=== PATIENT | female | born 1985 | race Two or more races ===

== ENCOUNTER 2024-04-25 12:26 | Emergency (ER) | payer BC, SELFPAY ==
[2024-04-25 12:26] VITALS: BP 108/78; PULSE 117; RESP 22; TEMP 36.7; O2SAT 97; BMI 36.8
--- NOTE | 2024-04-25 12:46 | XR_ITS ---
Examination: PA lateral chest 2 views TECHNIQUE: Upright PA lateral chest 2 views Exam date and time: April 25, 2024 1300 hours Comparison October 03, 2014 INDICATIONS: Coughing this week. FINDINGS: Normal heart size Lungs are clear. The osseous structures are intact IMPRESSION: No active disease
--- NOTE | 2024-04-25 12:46 | XR_ITS ---
Examination: CT brain head without contrast. 2-D sagittal coronal reconstructions Date and time of exam:November 24, 2023 1323 hours Comparison October 20, 2022 INDICATIONS: Generalized head pain today CTDI: vol (mGy):49.8 DLP: (mGycm):1024 Technique: Multiple CT axial sections of the brain have been obtained, 5 mm slice thickness. Contrast has not been administered. 2-D sagittal, coronal reconstructions have been obtained Low dose protocols were performed. One or more of the following dose reduction techniques were used; automated exposure control, adjustment of the mA and/or KV according to patient size, use of iterative reconstruction technique. Findings: No significant ventricular enlargement. Intra-axial or extra-axial hemorrhage density is not seen. No mass effect or midline shift Basal cisterns are not remarkable. Fourth ventricle is midline. Cranial vault intact. Prominent chronic ethmoid sinusitis Impression: Negative for acute hemorrhage, mass effect or midline shift Advise clinical correlation follow-up accordingly
[2024-04-25] MEDS: ACETAMINOPHEN 500 MG TABLET 1000 MG PO (12:54)
[2024-04-25] MEDS: DEXAMETHASONE SOD PHOS INJ 10 MG/ML VIAL PO (12:55)
[2024-04-25] MEDS: ALBUTEROL/IPRATROPIUM (Duoneb) RT SOL 3 ML NEBU INH (13:14)
[2024-04-25 13:17] VITALS: PULSE 111; RESP 22; O2SAT 98
--- NOTE | 2024-04-25 13:40 | PD.ASTHM ---
ED Asthma RME/HPI General Chief Complaint: Asthma Stated Complaint: ASTHMA FLARE UP Time Seen by Provider: 04/25/24 12:35 Arrival date/time: 04/25/24 12:26 39-year-old female with medical history significant for asthma presents to the emergency department today complaints of cough, congestion and asthma flareup there are no other associated symptoms or aggravating factors no other modifying factors, patient denies taking medication before coming to ER today Limitations: no limitations Related Data Home Medications ?Medication ?Instructions ?Recorded ?Confirmed albuterol sulfate 90 mcg/actuation 2 puff inhalation Q6H PRN 04/01/20 04/01/20 aerosol inhaler Shortness Of Breath Previous Rx's ?Medication ?Instructions ?Recorded docusate sodium 100 mg capsule 100 mg PO BID 30 days 04/04/20 (Colace) #60 caps ibuprofen 600 mg tablet (IBU) 600 mg PO Q6H PRN fever or pain 30 04/04/20 days #60 tabs dicyclomine 20 mg tablet 20 mg PO QID PRN abdominal pain 10/20/22 #14 tabs ondansetron 4 mg disintegrating 4 mg PO TID PRN nausea and 10/20/22 tablet vomiting #14 tabs ibuprofen 600 mg tablet 600 mg PO Q6H PRN pain #30 tabs 05/24/23 prednisone 10 mg tablet 30 mg (3 x 10 mg) PO BID 3 days 04/25/24 #18 tabs Allergies Allergy/AdvReac Type Severity Reaction Status Date / Time phenylephrine Allergy Severe REACTS Verified 05/24/23 19:28 WITH ASTHMA brompheniramine Allergy Mild REACTS Verified 05/24/23 19:28 WITH ASTHMA phenylpropanolamine Allergy Mild Difficulty Verified 05/24/23 19:28 [From Dimetapp Breathing (brompheniramine-PPA)] Review of Systems Review of Systems Systems Reviewed: All systems reviewed, normal except as documented Constitutional Constitutional: Reports system reviewed and no additional complaints, except as documented, Reports body ache(s), Reports fever(s) and Reports headache(s) Eyes Eyes: Reports system reviewed and no additional complaints, except as documented and Denies blurry vision ENT Ears, Nose, Mouth, and Throat: Reports system reviewed and no additional complaints, except as documented, Reports headache(s), Reports nasal congestion and Reports nasal discharge Cardiovascular Cardiovascular: Reports system reviewed and no additional complaints, except as documented, Denies chest pain and Denies dyspnea Respiratory Respiratory: Reports system reviewed and no additional complaints, except as documented, Reports chest congestion, Reports cough and Denies dyspnea Gastrointestinal Gastrointestinal: Reports system reviewed and no additional complaints, except as documented and Denies abdominal pain Integumentary/Breasts Skin/Breast: Reports system reviewed and no additional complaints, except as documented and Denies rash Neurologic Neurologic: Reports system reviewed and no additional complaints, except as documented, Reports as per HPI and Reports headache(s) Past Medical History Past Medical History NEUROLOGIC: Negative Neurological Disorders or Seizures CARDIAC: Negative Cardiac Disorders or Congestive Heart Failure RESPIRATORY: Positive Asthma; Negative Chronic Obstructive Pulmonary Disease (COPD) or Sleep Apnea GASTROINTESTINAL: Positive Gastrointestinal Disorders and Gall Bladder Disease GENITOURINARY: Negative Genitourinary Disorders or Renal Disease REPRODUCTIVE: Positive Previous Pregnancies MUSCULOSKELETAL: Negative Musculoskeletal Disorders ENDOCRINE: Negative Endocrine Disorders, Diabetes Mellitus Type 1 or Diabetes Mellitus Type 2 HEMATOLOGIC: Positive Blood Disorders and Clotting Problems; Negative Anemia or Sickle Cell Disease OTHER HISTORY: Positive Hospitalization; Negative Falls, Blood Transfusions, Anesthesia Reactions, Chemotherapy, MRSA or Cancer Family History FAMILY HISTORY: Negative Family Respiratory Disorders, Family Cardiac Disorders or Family Gastrointestinal Problems Surgical History SURGICAL: Positive Abdominal Surgery, Hysterectomy and Tubal Ligation; Negative Joint Replacement Social History SMOKING STATUS: Never smoker SUBSTANCE USE: does not use ED Exam General Limitations: Present no limitations General appearance: Present alert and in no apparent distress Head Head exam: Present atraumatic, normocephalic and normal inspection Eye Eye exam: Present normal appearance, PERRL and EOMI; Absent conjunctival injection ENT ENT exam: Present normal exam, normal oropharynx and mucous membranes moist Neck Neck exam: Present normal inspection, full ROM and trachea midline Chest Chest inspection: Present normal inspection and symmetric chest wall rise Respiratory Respiratory exam: Present normal lung sounds bilaterally; Absent respiratory distress Cardiovascular Cardiovascular exam: Present regular rate, normal rhythm and normal heart sounds Abdominal Exam Abdominal exam: Present soft and normal bowel sounds; Absent distention, tenderness, guarding, rebound or rigidity Extremities Exam Extremities exam: Present normal inspection and full ROM Back Exam Back exam: Present normal inspection and full ROM Neurological Exam Neurological exam: Present alert, oriented X3, CN II-XII intact, normal gait and reflexes normal; Absent motor sensory deficit Psychiatric Psychiatric exam: Present normal affect and normal mood Skin Skin exam: Present warm, dry, intact and normal color; Absent rash Course Quality Measures none Orders Category Date Time Status Bedside Influenza A&B Antigen Test NOW Care 04/25/24 12:[address] head/brain wo con Stat Exams 04/25/24 12:46 Completed XR chest 2V Stat Exams 04/25/24 12:46 Completed Acetaminophen Tab [Tylenol ES Tab] Med 04/25/24 12:46 Discontinued 1,000 mg PO X1 ONE Albuterol/Ipratr Rt Karen [Duoneb Rt Karen] Med 04/25/24 12:46 Discontinued 3 ml INH X1 ONE Dexamethasone Inj [Decadron Inj] Med 04/25/24 12:46 Discontinued 10 mg PO X1 ONE Vital Signs Vital signs: Vital Signs Temperature 98.1 F 04/25/24 12:26 Pulse Rate 117 H 04/25/24 12:26 Respiratory Rate 22 H 04/25/24 12:26 Blood Pressure 108/78 04/25/24 12:26 Pulse Oximetry (%) 97 04/25/24 12:26 Oxygen Delivery Method Room Air 04/25/24 12:26 O2 saturation 97% room air within normal limits Asthma MDM Narrative MDM Narrative:: 39-year-old female with medical history significant for asthma presents to the emergency department today complaints of cough, congestion and asthma flareup patient reports headache and head burning there are no other associated symptoms or aggravating factors no other modifying factors, patient denies taking medication before coming to ER today On exam patient well-appearing patient does not appear ill or toxic patient does not appear in acute distress On exam patient is wheezing Patient checked for flu and COVID chest x-ray obtained Patient given breathing treatment and steroids Patient discharged home in no distress to follow-up with primary care doctor in the next 24 to 48 hours and for any worsening symptoms to return to the ER immediately Patient data External records reviewed:: [facility] previous records Clinical information provided by:: patient Social determinants that could affect healthcare access:: none Patient has the following chronic illnesses:: None How is presenting disease/condition affected by chronic disease/condition?: no chronic disease Evaluation data The following diagnostics were reviewed and interpreted by me:: lab results and radiology exam(s) Lab and/or radiology exams considered but not ordered:: Labs and radiology obtained Interpretation Summary: Reviewed by me Medications / Prescriptions Medications or Prescriptions considered but not ordered:: Given Medication administrations:: Medication Administration History Discontinued Medications Acetaminophen (Acetaminophen 500 Mg Tablet) 1,000 mg PO X1 ONE Stop: 12/11/24 12:47 Last Admin: 04/25/24 12:54 Dose: 1,000 mg Documented By: BRYSON Albuterol/Ipratropium (Albuterol/Ipratropium (Duoneb) Rt Karen 3 Ml Nebu) 3 ml INH X1 ONE Stop: 04/25/24 12:47 Last Admin: 04/25/24 13:14 Dose: 3 ml Documented By: NOE Dexamethasone Sodium Phosphate (Dexamethasone Sod Phos Inj 10 Mg/Ml Vial) 10 mg PO X1 ONE Stop: 04/25/24 12:47 Last Admin: 04/25/24 12:55 Dose: 10 mg Documented By: BRYSON Consultations Consultation(s) initiated? (list below): No Diagnosis Differential diagnosis asthma: Acute exacerbation, Status asthmaticus, Acute asthmatic bronchitis and COPD exacerbation Most likely diagnosis given after review of the tests above:: Influenza, asthma flareup Admission Indicated Admission indicated?: not indicated Admission Request Was there a request for admission?: No Disposition Plan Disposition Plan: Discharge Discharge Attestation Discharge Attestation: The patient and all family members were given an opportunity to ask questions and understood the discharge instructions. Discharge instructions specifically effects, indications for sooner follow up or return to the emergency department, and the expected course of current diagnosis. Patient condition: Stable Discharge Plan Plan Patient Disposition: HOME (Self Care) Disposition Comment: Stable Prescriptions/Referrals Prescriptions/Med Rec: New prednisone 10 mg tablet 30 mg PO BID 3 Days Qty: 18 0RF No Action albuterol sulfate 90 mcg/actuation Hfa Aerosol Inhaler 2 puff INHALATION Q6H PRN (Reason: Shortness Of Breath) ibuprofen [IBU] 600 mg tablet 600 mg PO Q6H MDD 4 PRN (Reason: fever or pain) 30 Days Qty: 60 1RF docusate sodium [Colace] 100 mg capsule 100 mg PO BID MDD 2 30 Days Qty: 60 1RF dicyclomine 20 mg tablet 20 mg PO QID PRN (Reason: abdominal pain) Qty: 14 0RF ondansetron 4 mg tablet,disintegrating 4 mg PO TID PRN (Reason: nausea and vomiting) Qty: 14 0RF ibuprofen 600 mg tablet 600 mg PO Q6H PRN (Reason: pain) Qty: 30 0RF Problem List Clinical Impression: Influenza, Asthma exacerbation Patient/Caregiver Discharge Instructions Education Materials: Asthma Additional Instructions: Please follow up with your primary care doctor in the next 24-48hrs for any worsening symptoms return here immediately Print Language: Czech Stand Alone Forms: Yusra Award Info., Work/School Release, Patient Portal Info Letter PA/DIVISION OPERATIONS SPECIALIST Supervising Physician PA/DIVISION OPERATIONS SPECIALIST Supervising Physician: Dr. Dick
== END 2024-04-25 13:49 | disposition home or self-care (01) ==
LOC: SERX 13:51
PROVIDERS: Emergency Provider Emergency Medicine; PCP Physician Assistant
DX: J11.1 Influenza due to unidentified influenza virus with other respiratory manifestations (principal); J45.901 Unspecified asthma with (acute) exacerbation
CPT/HCPCS: 70450; 71046; 87400; 94640; 99284; A9270; J1100

== ENCOUNTER 2025-04-12 16:16 | Emergency (ER) | payer OTHER, SELFPAY ==
[2025-04-12 16:27] VITALS: BP 113/78; PULSE 73; RESP 20; TEMP 36.5; O2SAT 99; BMI 39.6
--- NOTE | 2025-04-12 16:30 | EKG_ITS ---
[facility] Test Date: 2025-04-12 Pat Name: KRISTEN HARMON Department: Room: - Gender: Female Sales Account Coordinator: : 1985 Requested By: Gary Andersen Order Number: [id number] Reading MD: Gary Andersen Measurements Intervals [place] Rate: 67 P: 22 KS: 149 QRS: 2 QRSD: 89 T: 23 QT: 392 QTc: 415 Interpretive Statements SINUS RHYTHM No previous ECG available for comparison /store/[email or web address]/[id number]
--- NOTE | 2025-04-12 16:30 | XR_ITS ---
EXAMINATION: AP chest single view TECHNIQUE: AP portable semiupright chest single view Date and time: April 12, 2025, 1639 hours, comparison April 25, 2024 INDICATIONS: Fever chest pain beginning 2 days ago. FINDINGS: Normal heart size Lungs are clear. Osseous rectors intact IMPRESSION: No active disease
--- NOTE | 2025-04-12 16:30 | PD.EDRME ---
Rapid Medical Screening Exam RME Arrival date/time: 04/12/25 16:16 39-year-old female with no known medical history presents to the emergency room with a chief complaint of multiple near syncopal episodes today I have greeted and performed a focused initial assessment of this patient. A comprehensive ED assessment and evaluation of the patient, analysis of all test results, and completion of the medical decision making process will be conducted by additional ED providers. Chief Complaint: Syncope / Near Syncope Time Seen by Provider: 04/12/25 16:24 Vital signs: Vital Signs Temperature 97.7 F 04/12/25 16:27 Pulse Rate 73 04/12/25 16:27 Respiratory Rate 20 04/12/25 16:27 Blood Pressure 113/78 04/12/25 16:27 Pulse Oximetry (%) 99 04/12/25 16:27 Oxygen Delivery Method Room Air 04/12/25 16:27 Vital signs reviewed by provider: Yes Exam: Strong and regular rhythm S1 and S2 noted Clear bilateral lung sounds Clinical Impression: Anemia/orthostatic hypotension
[2025-04-12 17:12] LABS: Basophils # (Auto) 0.0 Thou/mm3 (0.0-0.2); Basophils % (Auto) 0 % (0-2.5); Eosinophils # (Auto) 0.1 Thou/mm3 (0.0-0.5); Eosinophils % (Auto) 1 % (0-10); Hematocrit 40.2 % (36.0-46.0); Hemoglobin 13.7 g/dL (12.0-16.0); Immature Granulocytes Auto 0.03 Thou/mm3 (0.00-0.00); Lymphocytes # (Auto) 1.0 Thou/mm3 (1.0-4.8); Lymphocytes % (Auto) 14 % (10-50); Mean Corpuscular HGB Conc 34.1 g/dl (31.0-37.0); Mean Corpuscular Hemoglobin 30.9 pg (25.0-35.0); Mean Corpuscular Volume 91 fL (80-100); Monocytes # (Auto) 0.3 Thou/mm3 (0.0-0.8); Monocytes % (Auto) 4 % (0-12); Neutrophils # (Auto) 6.0 Thou/mm3 (1.8-7.7); Neutrophils % (Auto) 81 % (37-80); Nucleated Red Blood Cell # 0.00 Thou/mm3 (0.00-0.00); Nucleated Red Blood Cell % 0 /100 WBC (0); Platelet Count 309 Thou/mm3 (140-440); RDW Standard Deviation 40.2 fL (36.4-46.3); Red Blood Count 4.43 Miln/mm3 (4.00-5.20); White Blood Count 7.4 Thou/mm3 (3.6-11.0)
[2025-04-12 17:13] LABS: Collection Type, Urine Clean Catch
[2025-04-12 17:24] LABS: Bacteria,Urine 1+; Bilirubin,Urine Negative (Negative); Blood,Urine Trace (Negative); Clarity,Urine Clear (Clear/Hazy); Color,Urine Lt-Yellow (Lt Yel-Yel); Glucose, Urine Negative (Negative); Ketones,Urine Negative (Negative); Leukocyte Esterase,Urine Negative (Negative); Nitrite,Urine Negative (Negative); PH,Urine 6.0 (5.0-7.0); Protein,Urine Trace (Neg - Trace); RBC,Urine 4 /hpf (0-3); Specific Gravity,Urine 1.026 (1.001-1.035); Squamous Epithelial Cell,Urine 6 /hpf (0-5); Urobilinogen,Urine Negative mg/dL (0.0-1.0); WBC,Urine 2 /hpf (0-5)
[2025-04-12 17:24] LABS: Amphetamine/Methamp Scrn,U Negative (Negative); Barbiturate Screen,Urine Negative (Negative); Benzodiazepines Screen,Urine Negative (Negative); Benzoylecgonine Screen, Ur Negative (Negative); Fentanyl Screen,Urine Negative (Negative); Opiate Screen,Urine Negative (Negative); THC Screen,Urine Negative (Negative)
[2025-04-12 17:27] LABS: Culture Indicated,Urine Yes
[2025-04-12 17:29] LABS: INR 1.0 (0.9-1.3); Partial Thromboplastin Time 30.3 Seconds (22.0-36.0); Prothrombin Time 10.2 Seconds (9.0-12.2)
[2025-04-12 17:31] LABS: B-Type Natriuretic Peptide < 20 pg/mL (0-100)
[2025-04-12 17:37] LABS: Alanine Aminotransferase 18 U/L (10-49); Albumin, Serum 4.9 gm/dL (3.5-5.0); Albumin/Globulin Ratio 1.6 (1.2-2.2); Alkaline Phosphatase 91 U/L (46-116); Anion Gap 9 (7-16); Aspartate Amino Transferase 22 U/L (0-34); BUN/Creatinine Ratio 15 Ratio (12-20); Bilirubin,Total 0.9 mg/dL (0.3-1.2); Blood Urea Nitrogen 12 mg/dL (9-23); Calcium 9.7 mg/dL (8.3-10.6); Calcium (Corrected) 9.7 mg/dL (8.5-10.1); Carbon Dioxide 24.7 mMol/L (20.0-31.0); Chloride 106 mMol/L (98-107); Creatinine (Component) 0.8 mg/dL (0.6-1.3); Estimated Creatinine Clearance 101.5 mL/min (>60); Free T4 (Free Thyroxine) 1.18 ng/dL (0.89-1.76); Globulin 3.1 gm/dL (2.3-3.5); Glucose 98 mg/dL (74-106); Magnesium 2.0 mg/dL (1.6-2.6); Osmolality,Calculated 279 (275-295); Potassium 3.7 mMol/L (3.4-5.1); Sodium 140 mMol/L (136-145); Thyroid Stimulating Hormone 0.75 uIU/mL (0.55-4.78); Total Protein 8.0 gm/dL (5.7-8.2); Troponin I < 0.002 ng/mL (0.0-0.045); eGFR > 60 See Note
[2025-04-12 19:25] VITALS: BP 126/87; PULSE 74; RESP 18; TEMP 36.6; O2SAT 98
--- NOTE | 2025-04-12 19:37 | EDNOTE_ITS ---
ED Syncope RME/HPI General Chief Complaint: Syncope / Near Syncope Stated Complaint: SYNCOPE SEVERAL TIMES Time Seen by Provider: 04/12/25 16:24 Arrival date/time: 04/12/25 16:16 39-year-old female patient was brought in by family for evaluation regarding near syncope. Patient was doing her eyelashes somebody is doing her eyelashes, and suddenly developed sudden onset of dizziness, and seeing black, and almost lost consciousness. It happened several times today while doing her lashes, they have to stopped. Patient also had similar episode in the past while doing restroom. Patient denies any headache denies any chest pain denies any other complaints. Patient is ambulatory. RME / HPI RME / HPI narrative: 04/12/25 16:16 39-year-old female with no known medical history presents to the emergency room with a chief complaint of multiple near syncopal episodes today I have greeted and performed a focused initial assessment of this patient. A comprehensive ED assessment and evaluation of the patient, analysis of all test results, and completion of the medical decision making process will be conducted by additional ED providers. Exam: Strong and regular rhythm S1 and S2 noted Clear bilateral lung sounds Impression: Anemia/orthostatic hypotension Related Data Home Medications ?Medication ?Instructions ?Recorded ?Confirmed albuterol sulfate 90 mcg/actuation 2 puff inhalation Q 6H PRN 04/01/20 04/01/20 aerosol inhaler Shortness Of Breath Previous Rx's ?Medication ?Instructions ?Recorded docusate sodium 100 mg capsule 100 mg PO BID postpartu m 30 days 04/04/20 (Colace) #60 caps ibuprofen 600 mg tablet (IBU) 600 mg PO Q6H PRN fever or pain 30 04/04/20 days #60 tabs dicyclomine 20 mg tablet 20 mg PO QID PRN abdominal p ain 10/20/22 #14 tabs ondansetron 4 mg disintegrating 4 mg PO TID PRN nausea and 10/20/22 tablet vomiting #14 tabs ibuprofen 600 mg tablet 600 mg PO Q6H PRN pain #30 t abs 05/24/23 Allergies Allergy/AdvReac Type Severity Reaction Status Date / Time phenylephrine Allergy Severe REACTS Verified 04/12/25 16:20 WITH ASTHMA brompheniramine Allergy Mild REACTS Verified 04/12/25 16:20 WITH ASTHMA phenylpropanolamine (From Allergy Mild Difficulty Verified 04/12/25 16:20 Dimetapp Breathing (brompheniramine-PPA)) Review of Systems Review of Systems Narrative Review of Systems: Review of system reviewed and within normal limits except mentioned in HPI ED Exam Narrative Physical exam: VITAL SIGNS: Reviewed. GENERAL APPEARANCE: Alert and interactive, follows commands, no acute distress, HEAD AND FACE: Non-traumatic. ENT: PERRL, pink conjunctivitis, eyelid no trauma, Mucous membrane moist. NECK: Supple, nontender, no nuchal rigidity. CHEST: No tenderness, no crepitus, no paradoxical movement, no retractions. LUNGS: Clear, well ventilated, symmetric, no rales, no wheezing, no ronchi, no stridor, good breath sounds bilaterally. HEART: Regular rate, regular rhythm, no murmur, no gallops. ABDOMEN: Soft, positive bowel sounds, nondistended, no guarding, nontender, no rebound, no masses, RECTAL: Deferred. GENITAL: Deferred. NEUROLOGICAL: Gross motor function intact sensory function intact, Appropriate for age. MUSCULOSKELETAL: low back nontender, full range of motion. EXTREMITIES: Nontender, full range of motion. SKIN: Color pink, dry, no rash, no lacerations, no abrasions, no contusions. LYMPHATICS: Deferred. Course Quality Measures none Orders Category Date Time Status EKG (ED ONLY) *Do not use* NOW Care 04/12/25 16:30 Completed EKG (ED Only) Stat Exams 04/12/25 16:30 Draft XR chest 1V portable Stat Exams 04/12/25 16:30 Completed B-Type Natriuretic Peptide Stat Lab 04/12/25 16:51 Completed CBC Stat Lab 04/12/25 16:51 Completed Comprehensive Metabolic Panel Stat Lab 04/12/25 16:51 Completed Drug Screen,Urine Stat Lab 04/12/25 16:57 Completed Free T4 (Free Thyroxine) Stat Lab 04/12/25 16:51 Completed Magnesium Stat Lab 04/12/25 16:51 Completed Partial Thromboplastin Time Stat Lab 04/12/25 16:51 Completed Prothrombin Time with INR Stat Lab 04/12/25 16:51 Completed TSH [Thyroid Stimulating Hormone] Stat Lab 04/12/25 16:51 Completed Troponin I Stat Lab 04/12/25 16:51 Completed Urinalysis, C/S if Indicated Stat Lab 04/12/25 16:59 Completed Urine Culture Stat Lab 04/12/25 16:59 Received Vital Signs Vital signs: Vital Signs Temperature 97.7 F 04/12/25 16:27 Pulse Rate 73 04/12/25 16:27 Respiratory Rate 20 04/12/25 16:27 Blood Pressure 113/78 04/12/25 16:27 Pulse Oximetry (%) 99 04/12/25 16:27 Oxygen Delivery Method Room Air 04/12/25 16:27 Syncope MDM Narrative MDM Narrative:: 39-year-old female patient was brought in by family for evaluation regarding near syncope. Patient was doing her eyelashes somebody is doing her eyelashes, and suddenly developed sudden onset of dizziness, and seeing black, and almost lost consciousness. It happened several times today while doing her lashes, they have to stopped. Patient also had similar episode in the past while doing restroom. Patient denies any headache denies any chest pain denies any other complaints. Patient is ambulatory. Patient's laboratory workup today all came back unremarkable, EKG showed sinus rhythm, ventricular rate of 67 bpm, no ST segment elevation depression noted. Patient is stable for discharge home, patient is probably having vasovagal near syncope due to stimulation of the eyeball. I noticed her ambulatory with no help. She is stable for discharge home Patient data External records reviewed:: None Clinical information provided by:: patient Social determinants that could affect healthcare access:: none Patient has the following chronic illnesses:: None How is presenting disease/condition affected by chronic disease/condition?: no chronic disease Evaluation data The following diagnostics were reviewed and interpreted by me:: lab results, radiology exam(s) and EKG tracing(s) Lab and/or radiology exams considered but not ordered:: None Interpretation Summary: None Medications / Prescriptions Medications or Prescriptions considered but not ordered:: None Medication administrations:: None Consultations Consultation(s) initiated? (list below): No Diagnosis Syncope Differential Diagnosis: syncope due to orthostatic hypotension, vas ovagal syncope, dehydration and other Most likely diagnosis given after review of the tests above:: Vasovagal near syncope Admission Indicated Admission indicated?: not indicated Admission Request Was there a request for admission?: No Disposition Plan Disposition Plan: Discharge Discharge Attestation Discharge Attestation: The patient and all family members were given an opportunity to ask questions and understood the discharge instructions. Discharge instructions specifically effects, indications for sooner follow up or return to the emergency department, and the expected course of current diagnosis. Patient condition: Stable Discharge Plan Plan Patient Disposition: HOME (Self Care) Discharge Disposition comment: stable Prescriptions/Referrals Prescriptions/Med Rec: No Action albuterol sulfate 90 mcg/actuation Hfa Aerosol Inhaler 2 puff INHALATION Q6H PRN (Reason: Shortness Of Breath) ibuprofen [IBU] 600 mg tablet 600 mg PO Q6H MDD 4 PRN (Reason: fever or pain) 30 Days Qty: 60 1RF docusate sodium [Colace] 100 mg capsule 100 mg PO BID MDD 2 30 Days Qty: 60 1RF dicyclomine 20 mg tablet 20 mg PO QID PRN (Reason: abdominal pain) Qty: 14 0RF ondansetron 4 mg tablet,disintegrating 4 mg PO TID PRN (Reason: nausea and vomiting) Qty: 14 0RF ibuprofen 600 mg tablet 600 mg PO Q6H PRN (Reason: pain) Qty: 30 0RF Referrals: Natalya Burnett PA-C [Primary Care Provider, Family Practice] - In 1 week Problem List Clinical Impression: Vasovagal near-syncope Patient/Caregiver Discharge Instructions Discharge Activity: activity as tolerated Education Materials: Understanding Vasovagal Syncope Additional Instructions: Thank you for the opportunity for serving you today. You are stable for discharged . You are advised to: Follow-up with your PCP in 1 to 2 days Return to ED for worsening of symptoms Increase oral fluids Print Language: Belgian Stand Alone Forms: Yusra Award Info., Patient Portal Info Letter FOREST Supervising Physician FOREST Supervising Physician: MD Mayelin
== END 2025-04-12 19:41 | disposition home or self-care (01) ==
PROVIDERS: Nurse Practitioner Family; Emergency Provider Emergency Medicine; PCP Physician Assistant
DX: R55 Syncope and collapse (principal); R50.9 Fever, unspecified; R07.9 Chest pain, unspecified
CPT/HCPCS: 36415; 71045; 80053; 80307; 81001; 83735; 83880; 84439; 84443; 84484; 85025; 85610; 85730; 87086; 93005; 99283